=== PATIENT | male | born 2000 | race Caucasian/White ===

== ENCOUNTER 2019-10-07 02:28 | Emergency (ER) | payer BC, SELFPAY ==
[2019-10-07 02:30] VITALS: BP 143/85; PULSE 75; RESP 16; TEMP 36.7; O2SAT 100; BMI 23.5
--- NOTE | 2019-10-07 03:23 | ED.VIS.INJ ---
History of Present Illness Chief Complaint: Laceration Informant: Patient Onset: Today Mechanism/Context: Incised Quality of Pain: Aching Narrative: Patient is a 19-year-old male with no significant past medical history presenting with laceration to his right middle finger. Patient states he is working on his truck when something dropped and he cut his finger. He is not exactly sure what he cut his finger on. He has a laceration now on the finger. Is not currently bleeding. He denies any significant pain. He came in for wound check and likely stitches. He is not sure his last tetanus shot was. He thinks it was around 13 years old or younger. He denies any other complaints at this time. He does not have any associated numbness or tingling. Tetanus Immunization: Unknown Past Medical History - Allergies and Home Meds Allergies/Adverse Reactions: Allergies No Known Allergies Allergy (Verified 10/07/19 02:29) Primary Care Physician: Huy Rausch MD [Primary Care Provider] - Past Medical History: None Surgical History: noncontributory Smoking Status: Never smoker Review of Systems General: Denies: Chills, Fever, Sweats Genitourinary: Denies: Dysuria, Hematuria, Frequency Musculoskeletal: Reports: Extremity Pain - Right middle finger. Denies: Back pain Skin: Reports: Wounds - Right middle finger. Denies: Rash Neurological: Denies: Headache, Weakness, Parasthesia, Numbness Physical Exam Vital Signs/Narrative: Vital Signs Temp Pulse Resp BP Pulse Ox 10/07/19 02:30 98.0 F 75 16 143/85 H 100 Inital Vital Signs reviewed: Yes General: Well nourished, Well developed Head: Normocephalic, Atraumatic Eyes: Perrl, EOMI ENT: No trauma Neck: Nontender, Full ROM Cardiovascular: - - Brisk capillary refill Respiratory: No distress Extremeties: Laceration to the right third finger. No bony deformity. Normal flexion and extension mechanisms. Normal strength Skin: Normal color, No rash, - - 3 cm linear full-thickness laceration on the ulnar aspect of the right third finger spanning from the PIP to the DIP, exposure of the fascia but it does not go through the fascia Neurological: Alert, Oriented x3, Cranial nerves II-XII grossly intact, Normal Strength, Normal Sensation Psychological: Normal affect Diagnostic/Tx/Re-eval - Medical Decision Making Patient has linear laceration to his right middle finger. Laceration repair performed. See procedure note. I did order repeat tetanus but he declined because he thinks he had a tetanus when he was 14, 5 years ago. Patient does not require prophylactic antibiotics. He is counseled on wound care. Patient does not work for the next 2 days. He is given finger splint for comfort with his sutures. He is counseled to return for suture removal or have his PCP remove his sutures in 10 days. Patient is counseled on signs and symptoms requiring return to the emergency room. Patient verbalizes agreement and understand this plan. Patient discharged home in stable and improved condition. Laceration No standard instances Length: 1.18 in Depth: Skin Shape: Linear Prep: Sterile Conditions, Erum Laceration Repair: Digital block Irrigated (ml): 999 - Running water for 5 minutes Number of Sutures/Jovana: 3 - 1 simple interrupted and 2 horizontal mattress Stitch Description: Ethilon, Simple, Horizontal, Mattress, 4-0 ED Disposition - Plan for ED Patient: Disposition: Home or Assisted Living Diagnosis: Laceration of right middle finger Instructions: LACERATION, Hand Referrals: Huy Rausch MD [Primary Care Provider] - Additional Instructions: Take ibuprofen as needed for pain at home. Your sutures should be removed in about 10 days. Return the emergency room with any worsening symptoms or signs of infection.
[2019-10-07 04:31] VITALS: RESP 14
== END 2019-10-07 04:40 | disposition home or self-care (01) ==
PROVIDERS: Emergency Provider Emergency Medicine; PCP Family Medicine
DX: S61.212A Laceration without foreign body of right middle finger without damage to nail, initial encounter (principal); W45.8XXA Other foreign body or object entering through skin, initial encounter; W20.8XXA Other cause of strike by thrown, projected or falling object, initial encounter; Y93.9 Activity, unspecified; Y92.89 Other specified places as the place of occurrence of the external cause; Y99.9 Unspecified external cause status
CPT/HCPCS: 12001; 90715; 99283

== ENCOUNTER 2020-03-03 12:58 | Emergency (ER) | payer BC, SELFPAY ==
[2020-03-03 12:59] VITALS: BP 122/71; PULSE 56; RESP 15; TEMP 37.2; O2SAT 99; BMI 25.4
[2020-03-03 13:12] VITALS: BP 122/71; PULSE 56; RESP 15; TEMP 37.2; O2SAT 99; BMI 26.1
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
[2020-03-03 14:18] VITALS: BP 119/65; PULSE 74; RESP 18
== END 2020-03-03 14:19 | disposition home or self-care (01) ==
LOC: ED 14:05
PROVIDERS: Emergency Provider Emergency Medicine
DX: S06.0X1A Concussion with loss of consciousness of 30 minutes or less, initial encounter (principal); V86.59XA Driver of other special all-terrain or other off-road motor vehicle injured in nontraffic accident, initial encounter; Y93.I9 Activity, other involving external motion; Y92.89 Other specified places as the place of occurrence of the external cause; Y99.9 Unspecified external cause status
CPT/HCPCS: 70450; 72125; 99282

== ENCOUNTER 2020-06-11 15:45 | Emergency (ER) | payer BC, SELFPAY ==
[2020-06-11 15:46] VITALS: BP 110/77; PULSE 85; RESP 15; TEMP 36.3; O2SAT 99; BMI 23.7
--- NOTE | 2020-06-11 16:31 | ED.DCSUM_ITS ---
History of Present Illness Chief Complaint: Allergic Reaction Informant: Patient Onset: Yesterday Maximum Severity: Mild Narrative: The patient presents complaining of a bee sting to the right flank that occurred yesterday and facial swelling that seems more prominent today. He has no fever cough stridor or drooling difficulty breathing. Indicates that basically yesterday of the inadvertently got caught under his shirt he suffered bee sting to the right flank local reaction only he felt a little bit of minimal facial swelling at that time today he noticed more facial swelling he came in for evaluation. He has no known allergies to bee stings, he has not been ill any other way subsequent to the bee sting his health is been very good just some edema to his face and itching at the initial bee sting site Past Medical History - Allergies and Home Meds Allergies/Adverse Reactions: Allergies No Known Allergies Allergy (Verified 03/18/20 13:55) Primary Care Physician: Huy Rausch MD [Primary Care Provider] - Past Medical History: None Surgical History: noncontributory Smoking Status: Current some day smoker Review of Systems General: Denies: Chills, Fever, Sweats Eyes: Denies: Visual changes - bilaterally, Diplopia ENT: Denies: Rhinorrhea, Sore throat Cardiovascular: Denies: Chest pain, Palpitations Respiratory: Denies: Dyspnea, Cough, Dyspnea on exertion Gastrointestinal: Denies: Abdominal pain, Nausea, Vomiting, Diarrhea, Melena, Hematochezia Genitourinary: Denies: Dysuria, Hematuria, Frequency Musculoskeletal: Denies: Back pain, Extremity Pain Skin: Reports: Rash. Denies: Wounds Neurological: Denies: Headache, Weakness, Numbness Physical Exam Vital Signs/Narrative: Vital Signs Temp Pulse Resp BP Pulse Ox 06/11/20 15:46 97.4 F L 85 15 110/77 99 General: Well nourished, Well developed, No Acute Distress Head: Normocephalic, Atraumatic, - - Edema over the cheeks bilaterally the crosses the nose his nose is clear his throat is clear airways intact neck is very supple lungs are crystal clear normal he has no complaints of shortness of breath Eyes: Perrl, EOMI ENT: Moist mucous membranes, No rhinorrhea Neck: Supple, Nontender Cardiovascular: Regular rate, Regular rhythm, No murmurs Respiratory: No distress, CTA bilaterally, Chest nontender Abdomen: Soft, Nontender, Nondistended, Normal bowel sounds Back: Nontender, Normal Inspection Extremities: Nontender, No edema Skin: Normal color, Rash, - - In addition to the above he has a bee sting shania in the lower 2 cm hives to the right flank Neurological: Alert, Oriented x3, Cranial nerves II-XII grossly intact, Normal Strength, Normal Sensation Psychological: Normal affect, Normal Mood Diagnostic/Tx/Re-eval - Medical Decision Making I had a long conversation with him this is primarily a bee sting with localized reaction to the right flank area but he does have the edema to the face that he temporally relates to the bee sting more prominent today when he woke. It has not changed since he woke. 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
[2020-06-11] MEDS: Triamcinolone Acetonide 40 MG/ML Vial IM (16:53)
== END 2020-06-11 17:11 | disposition home or self-care (01) ==
LOC: ED 17:02
PROVIDERS: Emergency Provider Emergency Medicine
DX: T63.441A Toxic effect of venom of bees, accidental (unintentional), initial encounter (principal); F17.200 Nicotine dependence, unspecified, uncomplicated
CPT/HCPCS: 96372; 99281; 99282

== ENCOUNTER 2021-10-01 12:09 | Outpatient (CLI) | payer BC, SELFPAY ==
--- NOTE | 2021-10-01 12:10 | RAD_ITS ---
STUDY: X-RAY - RIGHT HAND REASON FOR EXAM: Male, 21 years old. Trauma to the first second and third metacarpals.. TECHNIQUE: 3 view(s) of the hand. COMPARISON: None. FINDINGS: Normal radiocarpal articulation. Normal distal radioulnar joint. Normal visualized carpal bones. Normal carpal articulations Normal carpometacarpal articulation of the thumb. Normal second through fifth carpometacarpal joints. Normal metacarpi. Normal metacarpophalangeal joint of the thumb. Normal interphalangeal joint of the thumb. Normal proximal and distal phalanges of the thumb. Normal metacarpophalangeal joints of the second through fifth fingers. Normal proximal and distal interphalangeal joints of the second through fifth fingers. Normal phalanges of the second through fifth fingers. The soft tissue structures are unremarkable. RAD/Hand Min 3 Views IMPRESSION: Normal x-ray examination of the hand. Electronically Signed: Manuel Rollins MD at 12:33 EST ,
--- NOTE | 2021-10-01 12:10 | RAD_ITS ---
STUDY: X-RAY - RIGHT WRIST REASON FOR EXAM: Male, 21 years old. Injury. Pain of the first and third metacarpals. TECHNIQUE: 3 view(s) of the wrist were obtained. COMPARISON: None. FINDINGS: Normal visualized distal radius and ulna. Normal radiocarpal articulation. Normal distal radioulnar articulation. Normal carpal bones. Normal carpal articulations. Normal carpometacarpal articulation of the thumb. Normal second through fifth carpometacarpal articulations. Normal visualized metacarpal bones. The soft tissue structures are unremarkable. RAD/Wrist min 3 Views IMPRESSION: Normal x-ray examination of the wrist. Electronically Signed: Manuel Rollins MD at 12:32 EST ,
== END 2021-10-01 23:59 | disposition home or self-care (01) ==
LOC: MTRAD 12:10
PROVIDERS: Referring Provider Physician Assistant; Visit Provider Physician Assistant
DX: S69.91XA Unspecified injury of right wrist, hand and finger(s), initial encounter (principal)
CPT/HCPCS: 73110; 73130

== ENCOUNTER 2024-07-23 21:40 | Emergency (ER) | payer OTHER, BC, SELFPAY ==
[2024-07-23 21:41] VITALS: BP 125/97; PULSE 69; RESP 19; TEMP 36.2; O2SAT 100; BMI 28.5
--- NOTE | 2024-07-24 00:13 | EX.ED.GENINJ ---
HPI History of Present Illness Chief Complaint: Bite Informant: patient Narrative Narrative: Here for evaluation cat bite of hands occurring at work this occurred at 7:30 PM, 5 hours ago. 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 Cat bit him in the right thumb and left hand. Scratch on the hands. No fevers. Tetanus unknown. No allergies. Tetanus Immunization: Unknown [facility] Medical History Sprain of right hand Right wrist sprain Sprain of right middle finger Sprain of right index finger Hypertension Home Medications ?Medication ?Instructions ?Recorded ?Last Taken ?Type epinephrine 0.3 mg/0.3 mL 0.3 mg (0.3 mL) IJ PRN PRN 06/11/20 Unknown Rx injection, auto-injector Angioedema ##1 amoxicillin 875 mg-potassium 875 mg PO Q12H #10 TABLETS 07/24/24 Unknown Rx clavulanate 125 mg tablet Allergy/AdvReac Type Severity Reaction Status Date / Time No Known Allergies Allergy Verified 03/18/20 13:55 Social History Smoking Status: Current some day smoker tobacco type: cigarettes alcohol intake: never ROS ROS ED Constitutional Constitutional ED: Denies chills, fever(s) or sweats Eyes Eyes: Denies change in vision ENT ENT ED: Denies dysphagia or sore throat Cardiovascular Cardiovascular: Denies chest pain, leg edema, palpitations or racing heartbeat Respiratory/Chest Respiratory/Chest: Denies cough, dyspnea or dyspnea on exertion Gastrointestinal Gastrointestinal: Denies abdominal pain, diarrhea, nausea or vomiting Genitourinary Genitourinary ED: Denies dysuria, hematuria or urinary frequency Musculoskeletal Musculoskeletal: Denies back pain, extremity pain or neck pain Integumentary Reports wounds; Denies rash Neurologic Neurologic: Denies headache(s), paresthesias or weakness EXAM Physical Exam Const Vital Signs: 07/23/24 21:41 07/24/24 00:41 Temperature 97.1 F L 97.5 F L Temperature Source Temporal Pulse Rate 69 64 Respiratory Rate 19 H 15 Blood Pressure 125/97 H 122/65 H Blood Pressure Mean 106 84 Pulse Ox 100 98 Oxygen Delivery Method Room Air Positive well nourished and well developed General Appearance ED: well developed and NAD HEENT Reports moist mucous membranes normocephalic and atraumatic Neck no lymphadenopathy and supple General: Negative for tenderness Chest Wall Chest: Negative for tenderness Resp normal respiratory effort and normal air movement Effort and Inspection: symmetric chest movement; Negative for respiratory distress Cardio regular rate, regular rhythm and no murmurs Peripheral Pulses: pulses 2+ throughout GI normal to inspection, nondistended, normoactive bowel sounds and non-tender Palpation: Negative for guarding or rebound tenderness present Back/Spine no thoracic nor lumbar tenderness Extremity Extremity Narrative: Right hand: Abrasion wound to the radial aspect nailbed of the thumb. No streaking. Abrasions dorsal hand with no open wounds, no streaking. Left hand: Puncture noted at the dorsal distal third MCP. Abrasions with scratches dorsal hand. No drainage no streaking no swelling. General Extremety ED: Negative for edema or tenderness General Extremity: Negative for edema Neuro oriented x3 and no sensory deficits noted Sensorium / Orientation: awake and alert Skin no rashes or lesions noted and no wounds MDM MDM MDM Narrative Medical decision making narrative: Interventions / MDM: Differential diagnosis: Cat bite, cat scratch, tetanus updated Diagnosis considered but do not suspect: N/A My EKG interpretation: N/A Imaging independently reviewed and interpreted by myself: N/A External documents reviewed: N/A Test considered but not ordered:N/A ED course: Injury occurring at work. Cat bite and scratch. No current signs of infection. His tetanus updated. Will start prophylactic antibiotics with cat bite and scratch with Augmentin. Discussed signs symptoms of infection to return otherwise outpatient follow-up with occupational health. All questions were answered. Re-evaluation: stable Disposition discussed with patient/family/significant other: Patient Case discussed with consulting clinician: N/A This note was generated with [employer] dictation software. It may contain incorrect words, spelling, and punctuation that were not noted in checking the note before signing. Discharge Plan Triage Chief Complaint: Bite ED Provider: Cleveland Ryan Dx/Rx/DC Orders Clinical Impression: Cat bite of hand, Tetanus toxoid vaccination administered at current visit Instructions: ED Cat Bite Prescriptions: New amoxicillin-pot clavulanate 875-125 mg tablet 875 mg PO Q12H Qty: 10 0RF No Action epinephrine 0.3 MG/0.3 ML auto-injector 0.3 mg IJ PRN PRN (Reason: Angioedema) Qty: 1 0RF Primary Care Provider: Care Physician,No Primary Referrals: Care Physician,No Primary [Primary Care Provider] - Print Language: Ukrainian Disposition Disposition: Home, Self Care Discharge Date/Time: 07/24/24 00:52
[2024-07-24] MEDS: Diphth,Pertuss(Acell),Tet Vac 0.5 ML Vial IM (00:35)
[2024-07-24] MEDS: Amox/Clavulanate 875 MG Tablet PO (00:35)
[2024-07-24 00:41] VITALS: BP 122/65; PULSE 64; RESP 15; TEMP 36.4; O2SAT 98
== END 2024-07-24 00:52 | disposition home or self-care (01) ==
PROVIDERS: Emergency Provider Emergency Medicine; Visit Provider Emergency Medicine
DX: S61.051A Open bite of right thumb without damage to nail, initial encounter (principal); W55.01XA Bitten by cat, initial encounter; Y99.0 Civilian activity done for income or pay; I10 Essential (primary) hypertension; F17.210 Nicotine dependence, cigarettes, uncomplicated; Z23 Encounter for immunization
CPT/HCPCS: 90471; 90715; 99283

== ENCOUNTER → 2025-04-04 | Outpatient (CLI) | payer BC, SELFPAY ==
--- OUTSIDE RECORDS SUMMARY | 2025-04-04 11:36 | XMS RPT_ITS | CCD ---
Author Organization [place] [employer] [facility] Care Team Providers Care Helpdesk Technician Name Role Phone Cleveland Ryan Attending Unavailable Care Physician, No Primary Primary Care Unava ilable Problems Problem Classification Problem Date Documented Da te Episodic/Chronic Open wounds of extremities (1 source) Open bite of right thumb without damage to nail, initial encounter; Translations: [Open bite of right thumb without damage to nail, initial encounter] Onset: 09-04-2024 Episodic Results Test Name Value Interpretation Reference Range [facility] Emergency Department Summary on 07-24-2024 Emergency Department Summary [facility] Medical Records Department [address] [place] [id number] Emergency Department Summary 07/24/24 MR#: [id number] Acct: [id number] Name: JOEL FLOWERS JrAngelo Rep #: [id number] : 2000 23 From: [place] Michaud PCP: Care Physician,No Primary Status:DEP ER Location: ED HPI History of Present Illness Chief Complaint: Bite Informant: patient Narrative Narrative: Here for evaluation cat bite of hands occurring at work this occurred at 7:30 PM, 5 hours ago. 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 Cat bit him in the right thumb and left hand. Scratch on the hands. No fevers. Tetanus unknown. No allergies. Tetanus Immunization: Unknown [facility] Medical History Sprain of right hand Right wrist sprain Sprain of right middle finger Sprain of right index finger Hypertension Home Medications ???Medication ???Instructions ???Recorded ???Last Taken ???Type epinephrine 0.3 mg/0.3 mL 0.3 mg (0.3 mL) IJ PRN PRN 06/11/20 Unknown Rx injection, auto-injector Angioedema ##1 amoxicillin 875 mg-potassium 875 mg PO Q12H #10 TABLETS 07/24/24 Unknown Rx clavulanate 125 mg tablet Allergy/AdvReac Type Severity Reaction Status Date / Time No Known Allergies Allergy Verified 03/18/20 13:55 Social History Smoking Status: Current some day smoker tobacco type: cigarettes alcohol intake: never ROS ROS ED Constitutional Constitutional ED: Denies chills, fever(s) or sweats Eyes Eyes: Denies change in vision ENT ENT ED: Denies dysphagia or sore throat Cardiovascular Cardiovascular: Denies chest pain, leg edema, palpitations or racing heartbeat Respiratory/Chest Respiratory/Chest: Denies cough, dyspnea or dyspnea on exertion Gastrointestinal Gastrointestinal: Denies abdominal pain, diarrhea, nausea or vomiting Genitourinary Genitourinary ED: Denies dysuria, hematuria or urinary frequency Musculoskeletal Musculoskeletal: Denies back pain, extremity pain or neck pain Integumentary Reports wounds; Denies rash Neurologic Neurologic: Denies headache(s), paresthesias or weakness EXAM Physical Exam Const Vital Signs: 07/23/24 21:41 07/24/24 00:41 Temperature 97.1 F L 97.5 F L Temperature Source Temporal Pulse Rate 69 64 Respiratory Rate 19 H 15 Blood Pressure 125/97 H 122/65 H Blood Pressure Mean 106 84 Pulse Ox 100 98 Oxygen Delivery Method Room Air Positive well nourished and well developed General Appearance ED: well developed and NAD HEENT Reports moist mucous membranes normocephalic and atraumatic Neck no lymphadenopathy and supple General: Negative for tenderness Chest Wall Chest: Negative for tenderness Resp normal respiratory effort and normal air movement Effort and Inspection: symmetric chest movement; Negative for respiratory distress Cardio regular rate, regular rhythm and no murmurs Peripheral Pulses: pulses 2+ throughout GI normal to inspection, nondistended, normoactive bowel sounds and non-tender Palpation: Negative for guarding or rebound tenderness present Back/Spine no thoracic nor lumbar tenderness Extremity Extremity Narrative: Right hand: Abrasion wound to the radial aspect nailbed of the thumb. No streaking. Abrasions dorsal hand with no open wounds, no streaking. Left hand: Puncture noted at the dorsal distal third MCP. Abrasions with scratches dorsal hand. No drainage no streaking no swelling. General Extremety ED: Negative for edema or tenderness General Extremity: Negative for edema Neuro oriented x3 and no sensory deficits noted Sensorium / Orientation: awake and alert Skin no rashes or lesions noted and no wounds MDM MDM MDM Narrative Medical decision making narrative: Interventions / MDM: Differential diagnosis: Cat bite, cat scratch, tetanus updated Diagnosis considered but do not suspect: N/A My EKG interpretation: N/A Imaging independently reviewed and interpreted by myself: N/A External documents reviewed: N/A Test considered but not ordered:N/A ED course: Injury occurring at work. Cat bite and scratch. No current signs of infection. His tetanus updated. Will start prophylactic antibiotics with cat bite and scratch with Augmentin. Discussed signs symptoms of infection to return otherwise outpatient follow-up with occupational health. All questions were answered. Re-evaluation: stable Disposition discussed with patient/family/dennis padilla other: Patient Case discussed with consulting clinician: N/A This note was generated with [employer] dictation software. It may contain incorrect words, spelling, and punctuation that were not noted in checking the note before signing. Discharge Pl (more content not included)... Normal [facility] Encounters Encounter Date Encounter Type Care Provider Facility Start: 07-23-2024 End: 07-24-2024 Emergency department patient visit Cleveland Ryan Facility:[facility] Payers Date Payer Category Payer Self-pay 2024 Unknown [id number] 2024 Unknown [id number] Unknown [id number] Summary Purpose Family History No Family History Records Found Advance Directives No Advanced Directives Records Found Additional Source Comments (unrecognized sect ion and content) No Status Records Found INFORMATION SOURCE (unrecogn ized section and content) DATE CREATED AUTHOR 09/05/2024 [facility] FOR RECORDS PERTAINING TO PATIENTS WHO ARE OR HAVE BEEN ENROLLED IN A CHEMICAL DEPENDENCY/SUBSTANCEABUSE PROGRAM, SOME INFORMATION MAY BE OMITTED. This clinical summary was aggregated from multiple sources. Caution should be exercised in using it in the provision of clinical care. This summary normalizes information from multiple sources, and as a consequence, information in this document may materially change the coding, format and clinical context of patient data. In addition, data may be omitted in some cases. CLINICAL DECISIONS SHOULD BE BASED ON THE PRIMARY CLINICAL RECORDS. [employer] [facility] provides no warranty or guarantee of the accuracy or completeness of information in this document.
[2025-04-04 12:49] LABS: Hematocrit 43.8 % (40-54); Hemoglobin 14.6 g/dL (13.0-16.5); Mean Corp Hgb Conc 33.3 g/dL (32-36); Mean Corpuscular Volume 92.0 fL (80-94); Mean Platelet Vol. 10.1 fl (6.2-12.0); Platelet Count 259 K/mm3 (150-450); RBC Distribution Width CV 12.7 % (11.6-14.6); RBC Distribution Width SD 42.9 fl (35.1-43.9); Red Blood Count 4.76 M/mm3 (4.6-6.2); White Blood Count 6.3 K/mm3 (4.4-11.0)
[2025-04-04 13:34] LABS: AST(SGOT) 20 U/L (<=37); Alanine Aminotransfer ALT/SGPT 24 U/L (<=46); Albumin, Serum 4.6 g/dL (3.5-5.0); Alkaline Phosphatase 58 U/L (40-129); Anion Gap 12 (5-15); BUN 14 mg/dL (4-19); BUN/Creat Ratio 16.0 RATIO (10-20); Calcium,Total 9.6 mg/dL (7.6-11.0); Carbon Dioxide 25.1 mmol/L (21.0-32.0); Chloride 103 mmol/L (98-108); Cholesterol 164 mg/dL (<=200); Globulin 3.0 g/dL (2.2-4.2); Glucose 88 mg/dL (70-99); Low Density Lipoprotein Calc. 109 mg/dL; Potassium 4.2 mmol/L (3.3-5.1); Triglycerides 72 mg/dL; Very Low Density Lipoprotein 14 mg/dL (5-40); Vitamin D,25 Hydroxy 29.0 ng/mL (30-100); cholesterol:hdl ratio screen 4.02
== END | disposition home or self-care (01) ==
LOC: MFPLAB 09:42
PROVIDERS: PCP Family Medicine; Referring Provider Family Medicine; Visit Provider Family Medicine
DX: Z00.00 Encounter for general adult medical examination without abnormal findings (principal); Z13.1 Encounter for screening for diabetes mellitus; Z13.220 Encounter for screening for lipoid disorders
CPT/HCPCS: 36415; 80053; 80061; 82306; 83036; 85027